=== PATIENT | female | born 2000 | race Caucasian/White ===

== ENCOUNTER 2020-02-20 19:01 | Emergency (ER) | payer MEDICAID ==
--- NOTE | 2020-02-20 20:44 | EDM.PDOC ---
ED HPI GENERAL MEDICAL PROBLEM - General Chief Complaint: [employer] Problem Stated Complaint: MISCARRIAGE Time Seen by Provider: 02/20/20 20:30 Source of Information: Reports: Patient History Limitations: Reports: No Limitations - History of Present Illness INITIAL COMMENTS - FREE TEXT/NARRATIVE: 19-year-old female 0 para 0 AB 1 possibly comes now because she said she was 8 weeks on her first ultrasound and then on Tuesday after she had started having abdominal pain and bleeding a transabdominal ultrasound was done which did not show any intrauterine . She is now continued to bleed since she is soaking up several pads regularly but has not noted any weakness. She has cramping abdominal pain persistently for the last couple days apparently. The ultrasound was abdominal and not transvaginal. Duration: Day(s): Location: Reports: Abdomen Quality: Reports: Stabbing, Throbbing Severity: Moderate Improves with: Reports: None Worsens with: Reports: None Associated Symptoms: Reports: No Other Symptoms Lower Abdomen Pain Score (Numeric/FACES): 5 - Related Data Allergies Allergy/AdvReac Type Severity Reaction Status Date / Time No Known Allergies Allergy Verified 02/20/20 19:42 Home Meds: Home Meds NK [No Known Home Meds] 02/20/20 [History] Past Medical History HEENT History: Reports: Impaired Vision [employer] History: Reports: , Spontaneous Social & Family History - Tobacco Use Tobacco Use Status *Q: Never Tobacco User - Caffeine Use Caffeine Use: Reports: Soda, Tea - Recreational Drug Use Recreational Drug Use: No ED ROS GENERAL - Review of Systems Review Of Systems: See Below Constitutional: Reports: No Symptoms HEENT: Reports: No Symptoms Respiratory: Reports: No Symptoms Cardiovascular: Reports: No Symptoms Endocrine: Reports: No Symptoms GI/Abdominal: Reports: No Symptoms : Reports: Irregular Menses, Pain Musculoskeletal: Reports: No Symptoms Skin: Reports: No Symptoms Neurological: Reports: No Symptoms Psychiatric: Reports: No Symptoms (Milligram of 1 or 2 mg IM 1 IM) Hematologic/Lymphatic: Reports: No Symptoms Immunologic: Reports: No Symptoms ED EXAM - Physical Exam Exam: See Below Exam Limited By: No Limitations General Appearance: Alert, WD/WN, No Apparent Distress, Anxious Ears: Normal External Exam Nose: Normal Inspection Head: Atraumatic, Normocephalic Neck: Normal Inspection Respiratory/Chest: No Respiratory Distress, Lungs Clear Cardiovascular: Regular Rate, Rhythm GI/Abdominal Exam: Normal Bowel Sounds, Soft, Non-Tender Back Exam: Normal Inspection Extremities: Normal Inspection Neurological: Alert, Oriented, Normal Cognition Course - Vital Signs Text/Narrative:: Possibly 8-week female with nonviable on ultrasound has retained products of conception will likely need a D&C. She can call her OB in the morning as she does not need it tonight. We will write her a note to be off work tomorrow Last Recorded V/S: Last Vital Signs Temp 36.6 C 02/20/20 19:49 Pulse 60 02/20/20 19:49 Resp 16 02/20/20 19:49 BP 105/69 02/20/20 19:49 Pulse Ox 100 02/20/20 19:49 - Orders/Labs/Meds Orders: Active Orders 24 hr Category Date Time Status OB 1st Tri Sgl 1st Gest [US] Stat Exams 02/20/20 21:04 Taken OB Transvaginal [US] Stat Exams 02/20/20 21:03 Taken Labs: Laboratory Tests 02/20/20 02/20/20 Range/Units 21:03 21:03 WBC 16.3 H (4.5-11.0) K/uL RBC 4.90 (3.30-5.50) M/uL Hgb 14.2 (12.0-15.0) g/dL Hct 43.7 (36.0-48.0) % MCV 89 (80-98) fL MCH 29 (27-31) pg MCHC 33 (32-36) % Plt Count 276 (150-400) K/uL PT 11.3 (9.5-12.0) sec INR 1.04 (0.80-1.20) Departure - Departure Time of Disposition: 22:40 Disposition: Home, Self-Care 01 Clinical Impression: Incomplete - Discharge Information Referrals: Deja Orosco CNM [Primary Care Provider] - Forms: ED Department Discharge Sepsis Event Note (ED) - Evaluation Sepsis Screening Result: No Definite Risk - Focused Exam Vital Signs: Vital Signs Temp Pulse Resp BP Pulse Ox 02/20/20 19:49 36.6 C 60 16 105/69 100 02/20/20 19:38 36.6 C 60 16 105/69 100 - My Orders Last 24 Hours: My Active Orders 02/20/20 21:03 OB Transvaginal [US] Stat 02/20/20 21:04 OB 1st Tri Sgl 1st Gest [US] Stat - Assessment/Plan Last 24 Hours: My Active Orders 02/20/20 21:03 OB Transvaginal [US] Stat 02/20/20 21:04 OB 1st Tri Sgl 1st Gest [US] Stat
--- NOTE | 2020-02-20 22:58 | CRLUS ---
INDICATION: Vaginal bleeding. Miscarriage. COMPARISON: None available. FINDINGS: Transvaginal and transabdominal ultrasound examination of the female pelvis was performed. Initial examination is performed with transabdominal technique and transvaginal technique is used for better visualization of the pelvic structures. The uterus is anteverted with no evidence of mass. It measures 8.3 x 5.4 x 4.5 cm. There is prominent thickening of the endometrial lining, measuring up to 20 millimeters in thickness. There is increased color Doppler flow in the superior fundus and in the endometrial lining adjacent to which, worrisome for retained products of conception. There is a fluid collection located in the lower uterine segment extending into the cervix, with containing what appears to be a distorted pole or other soft tissue. This fluid collection measures 3.4 x 1.0 by 1.6 centimeters. The findings are that of a spontaneous in progress. The ovaries are normal in appearance, the right measuring 2.8 x 2.6 x 1.5 cm and the left measuring 2.5 x 1.7 x 1.3 cm. There is normal color and pulse doppler flow in both ovaries. There is no sign of free fluid in the pelvis. IMPRESSION: Uterine cavity is prominently thickened at 20 millimeters with increased color Doppler flow in the superior myometrium and adjacent endometrial lining, consistent with retained products of conception. What appears to be an irregularly shaped gestational sac is seen in the lower uterine segment and cervix, along with a possible pole. This is consistent with a spontaneous in progress. Dictated by Bassam Enriquez MD @ Feb 20 2020 10:50PM Signed by Dr. Bassam Enriquez @ Feb 20 2020 10:56PM
== END 2020-02-20 22:57 | disposition home or self-care (01) ==
LOC: JP.ED 19:01
DX: O03.4 Incomplete spontaneous abortion without complication (principal); Z87.891 Personal history of nicotine dependence; Z3A.08 8 weeks gestation of pregnancy
CPT/HCPCS: 36415; 76801; 76817; 85027; 85610; 99284-25

== ENCOUNTER 2022-09-26 17:39 | Emergency (ER) | payer MEDICAID | END 2022-09-26 18:46 | disposition home or self-care (01) | LOC: JP.ED 17:39 | DX: N61.0 Mastitis without abscess (principal) | CPT/HCPCS: 99283 ==

== ENCOUNTER 2024-03-07 15:38 | Emergency (ER) | payer MEDICAID | END 2024-03-07 16:45 | disposition left against medical advice (07) | LOC: JP.ED 15:38 | DX: Z53.21 Procedure and treatment not carried out due to patient leaving prior to being seen by health care provider (principal) ==